=== PATIENT | female | born 1960 | race Caucasian/White ===

== ENCOUNTER → 2016-09-04 | Outpatient (CLI) | payer OTHER ==
[~2016-09-04] MED LIST: INDERAL LA; PREDNISONE PO; PROPRANOLOL; ZOVIRAX800 MG PO
--- NOTE | ~2016-09-04 | MY11 ---
[facility] [[email or web address]]. [facility] A Service of [facility] & [facility] RADIOLOGY TEXT RESULTS PATIENT: DAT TORRE LOCATION: [facility] : 60 UNIT #: [id number] AGE: [address]: Ana Echevarria MD SEX: F ORDER DR: [id number] [address] [address] [id number] O MR#: [id number] Acc #: [id number] NAME: DAT TORRE : 1960 SEX: F STUDY DATE/TIME: 09/04/2016 14:51 UNIT: [facility] ROOM: STUDY DESCRIPTION: MY Mammogram Screening Dig [facility] Attending Physician: Ana Echevarria M.D. Referring Physician: Ana Echevarria M.D. Ordering Physician: Physician Non-Staff Primary Care Physician: Ana Echevarria M.D. MEDICAL IMAGING REPORT This report is preliminary unless electronic signature is present. EXAM Digital screening mammogram 09/04/2016 [facility] HISTORY 56-year-old woman. No risk elevation. Annual screening. COMPARISON 12/19/2012, 02/05/2014. FINDINGS Digital imaging of each breast was completed utilizing screening protocol. Review includes FDA-approved CAD device. Breast parenchyma is partially fatty replaced and mildly heterogeneous. Subareolar duct prominence is stable bilaterally. Minimal nodularity with benign characteristics projects in the right subareolar location. There are scattered calcifications with benign characteristics. I see no suspicious mass and no suspicious microcalcifications. There is no architectural deformity. IMPRESSION Stable benign mammogram. Annual screening recommended. Patients over the age of 40 are entered into a reminder system with target due date for the next mammogram. A result letter will also be sent to the patient. BIRADS: 2 benign finding. Dictated by... Aashish Quintana M.D. THIS IS AN ELECTRONICALLY VERIFIED REPORT Aashish Quintana M.D. at 09/07/2016 12:45 PM GAURAV/joseph [facility] A Service of [facility] & [facility] RADIOLOGY TEXT RESULTS PATIENT: [facility]ORRE [id number] 60 UNIT #: [id number] AGE: [address]: Ana Echevarria MD SEX: F ORDER DR: TD: 09/07/2016 10:14 JOB #: [id number] MEDICAL IMAGING REPORT Page 1 of 1
== END | disposition home or self-care (01) ==
LOC: SMAM 14:14
DX: Z12.31 Encounter for screening mammogram for malignant neoplasm of breast (principal)
CPT/HCPCS: G0202